=== PATIENT | female | born 1990 | race African-American/Black ===

== ENCOUNTER 2021-10-05 11:30 | Day surgery (SDC) | payer MEDICAID, OTHER ==
[2021-10-05] MEDS ORDERED: Depo-Medrol 40 MG/ML IM ONE (11:31)
[2021-10-05] MEDS ORDERED: Sodium Chloride 0.9% 10 ML FLUSH Syringe IJ ONE (11:31)
[2021-10-05] MEDS ORDERED: Lactated Ringers 1,000 ML IV ONE (13:35)
[2021-10-05] MEDS ORDERED: DIPRIVAN 200 MG/20 ML IV ONE (14:09)
--- NOTE | 2021-10-05 16:08 | XRAY ---
Indication: Left L3-L5 transforaminal VENESSA. Intraoperative fluoroscopy provided for 25 seconds. 4 digital spot image submitted for interpretation demonstrates posterior needle tips projecting over the expected left L3 and L4 nerve roots. Small amount of contrast injected for needle tip placement. Correlate with intraoperative findings/report.
--- NOTE | 2021-10-05 16:21 | XRAY ---
25 seconds fluoroscopy time in surgery for left L3-L5 transforaminal VENESSA.
== END 2021-10-05 14:36 | disposition home or self-care (01) ==
LOC: SDC-PAIN 11:30
PROVIDERS: ATTEND Psychiatry & Neurology Pain Medicine
DX: M54.16 Radiculopathy, lumbar region (principal); Z79.899 Other long term (current) drug therapy
CPT/HCPCS: 64483; 64484; 72100; 77003; 82947; 84703; J1030; J2704; Q9966

== ENCOUNTER 2021-11-02 13:53 | Day surgery (SDC) | payer OTHER ==
[2021-11-02] MEDS ORDERED: BUPIVACAINE 0.5% VIAL IJ ONE (13:54)
[2021-11-02] MEDS ORDERED: Depo-Medrol 40 MG/ML IM ONE (13:54)
[2021-11-02] MEDS ORDERED: Lactated Ringers 1,000 ML IV ONE (16:01)
[2021-11-02] MEDS ORDERED: DIPRIVAN 200 MG/20 ML IV ONE (16:48)
[2021-11-02] MEDS ORDERED: TORAdol 30 mg Injection ONE (17:10)
--- NOTE | 2021-11-02 19:27 | XRAY ---
Indication: Left greater trochanter bursa injection. Intraoperative fluoroscopy provided for 16 seconds. Single digital spot image submitted for interpretation demonstrates needle tip lateral to the left femur greater trochanter. Small amount of contrast injected for needle tip placement. Correlate with intraoperative findings/report.
--- NOTE | 2021-11-03 09:22 | XRAY ---
16 seconds fluoroscopy time in surgery for injection of the greater trochanter of the left hip.
== END 2021-11-02 17:15 | disposition home or self-care (01) ==
LOC: SDC-PAIN 13:53
PROVIDERS: ATTEND Psychiatry & Neurology Pain Medicine
DX: M16.12 Unilateral primary osteoarthritis, left hip (principal); Z79.899 Other long term (current) drug therapy
CPT/HCPCS: 20610; 73501; 77002; 84703; J1030; J1885; J2704; Q9966

== ENCOUNTER 2021-12-28 13:38 | Day surgery (SDC) | payer OTHER ==
[2021-12-28] MEDS ORDERED: BUPIVACAINE 0.5% VIAL IJ ONE (13:39)
[2021-12-28] MEDS ORDERED: Depo-Medrol 40 MG/ML IM ONE (13:39)
[2021-12-28] MEDS ORDERED: Lactated Ringers 1,000 ML IV ONE (15:01)
[2021-12-28] MEDS ORDERED: DIPRIVAN 200 MG/20 ML IV ONE (15:08)
--- NOTE | 2021-12-28 16:25 | XRAY ---
Indication: Left SI joint injection. Intraoperative fluoroscopy provided for 10 seconds. 2 digital spot images submitted for interpretation demonstrates posterior needle tip projecting over the inferior left SI joint. Correlate with intraoperative findings/report.
--- NOTE | 2021-12-28 17:05 | XRAY ---
10 seconds of fluoroscopy was used in surgery for a left SI injection.
== END 2021-12-28 15:32 | disposition home or self-care (01) ==
LOC: SDC-PAIN 13:38
PROVIDERS: ATTEND Psychiatry & Neurology Pain Medicine
DX: M46.1 Sacroiliitis, not elsewhere classified (principal); Z79.899 Other long term (current) drug therapy
CPT/HCPCS: 27096; 72020; 77002; 84703; G0260; J1030; J2704

== ENCOUNTER 2022-04-05 13:43 | Day surgery (SDC) | payer OTHER ==
[2022-04-05] MEDS ORDERED: Depo-Medrol 40 MG/ML IM ONE (13:44)
[2022-04-05] MEDS ORDERED: Marcaine Mpf 0.5% Vial 30 Ml IJ ONE (13:44)
[2022-04-05] MEDS ORDERED: Lactated Ringers 1,000 ML IV ONE (15:42)
[2022-04-05] MEDS ORDERED: DIPRIVAN 200 MG/20 ML IV ONE (16:08)
--- NOTE | 2022-04-05 21:56 | XRAY ---
Indication: Left SI joint and left hip injection. Intraoperative fluoroscopy provided for 25 seconds. 4 digital spot image submitted for interpretation demonstrates posterior needle tip projecting over the inferior left SI joint. Second needle tip projects lateral to the left femur neck with small amount of contrast injected for needle tip placement. Correlate with intraoperative findings/report.
--- NOTE | 2022-04-05 22:11 | XRAY ---
25 seconds of fluoroscopy was used in surgery for a left sacroiliac joint and left intra-articular hip injections.
== END 2022-04-05 16:35 | disposition home or self-care (01) ==
LOC: SDC-PAIN 13:43
PROVIDERS: ATTEND Psychiatry & Neurology Pain Medicine
DX: M46.1 Sacroiliitis, not elsewhere classified (principal); M16.12 Unilateral primary osteoarthritis, left hip; Z79.899 Other long term (current) drug therapy
CPT/HCPCS: 20610; 27096; 73502; 77002; 81025; G0260; J1030; J2704; Q9966

== ENCOUNTER 2022-06-07 14:46 | Day surgery (SDC) | payer OTHER ==
[2022-06-07] MEDS ORDERED: Depo-Medrol 40 MG/ML IM ONE (14:47)
[2022-06-07] MEDS ORDERED: Sodium Chloride 0.9(Preservative Free) 10 ML IJ ONE (14:47)
[2022-06-07] MEDS ORDERED: XYLOCAINE-MPF 1% 5ML SDV IJ ONE (14:47)
[2022-06-07] MEDS ORDERED: DIPRIVAN 200 MG/20 ML IV ONE ×2 (16:21→16:30)
[2022-06-07] MEDS ORDERED: MORPHINE SULFATE 2 MG INJ ONE (16:40)
[2022-06-07] MEDS ORDERED: Lactated Ringers 1,000 ML IV ONE (17:41)
--- NOTE | 2022-06-07 19:45 | XRAY ---
Indication: Left L4-S1 transforaminal VENESSA. Intraoperative fluoroscopy provided for 49 seconds. 4digital spot images submitted for interpretation demonstrates posterior needle tips projecting over the expected left L4 and L5 nerve roots. Small amount of contrast injected for needle tip placement. Correlate with intraoperative findings/report.
--- NOTE | 2022-06-08 10:58 | XRAY ---
49 seconds of fluoroscopy was used in surgery for a left L4-S1 transforaminal VENESSA.
== END 2022-06-07 16:55 | disposition home or self-care (01) ==
LOC: SDC-PAIN 14:46
PROVIDERS: ATTEND Psychiatry & Neurology Pain Medicine
DX: M54.16 Radiculopathy, lumbar region (principal); Z79.899 Other long term (current) drug therapy
CPT/HCPCS: 64483; 64484; 72100; 77003; 81025; J1030; J2270; J2704; Q9966

== ENCOUNTER 2022-06-21 14:46 | Day surgery (SDC) | payer OTHER ==
[2022-06-21] MEDS ORDERED: Depo-Medrol 40 MG/ML IM ONE (14:47)
[2022-06-21] MEDS ORDERED: Marcaine Mpf 0.5% Vial 30 Ml IJ ONE (14:47)
[2022-06-21] MEDS ORDERED: Lactated Ringers 1,000 ML IV ONE ×2 (16:46→17:01)
[2022-06-21] MEDS ORDERED: DIPRIVAN 200 MG/20 ML IV ONE ×2 (16:59→17:08)
[2022-06-21] MEDS ORDERED: Hydromorphone 1 mg/ml Injection ONE (17:27)
--- NOTE | 2022-06-21 19:02 | XRAY ---
Indication: Left SI joint and left hip injection. Intraoperative fluoroscopy provided for 47 seconds. 3 digital spot images obtained prone submitted for interpretation demonstrates posterior needle tip projecting over the left SI joint. Second needle tip lateral to the left femur neck with small amount of contrast injected for needle tip placement. Correlate with intraoperative findings/report.
--- NOTE | 2022-06-22 08:55 | XRAY ---
47 seconds fluoroscopy time in surgery for injections of the left SI joint and left hip.
== END 2022-06-21 17:36 | disposition home or self-care (01) ==
LOC: SDC-PAIN 14:46
PROVIDERS: ATTEND Psychiatry & Neurology Pain Medicine
DX: M46.1 Sacroiliitis, not elsewhere classified (principal); M16.12 Unilateral primary osteoarthritis, left hip; Z79.899 Other long term (current) drug therapy
CPT/HCPCS: 01992; 20610; 27096; 73501; 77002; 81025; G0260; J1030; J1170; J2704; Q9966

== ENCOUNTER 2022-12-27 11:20 | Day surgery (SDC) | payer OTHER ==
[2022-12-27] MEDS ORDERED: BUPIVACAINE 0.5% VIAL IJ ONE (11:21)
[2022-12-27] MEDS ORDERED: Depo-Medrol 40 MG/ML IM ONE (11:21)
[2022-12-27 11:51] LABS: HCG URINE TEST NEGATIVE (NEGATIVE)
[2022-12-27] MEDS ORDERED: DIPRIVAN 200 MG/20 ML IV ONE ×2 (12:44→12:50)
[2022-12-27] MEDS ORDERED: Lactated Ringers 1,000 ML IV ONE (14:16)
--- NOTE | 2022-12-27 16:33 | XRAY ---
Indication: Left SI joint and left hip injection Intraoperative fluoroscopy provided for 30 seconds. 3 digital spot image submitted for interpretation demonstrates posterior needle tip projecting over the left SI joint. Second needle tip lateral to the left femur neck with small amount of contrast injected for needle tip placement. Correlate with intraoperative findings/report.
--- NOTE | 2022-12-27 16:37 | XRAY ---
30 seconds of fluoroscopy was used in surgery for a left sacroiliac joint and left intra-articular hip injection.
== END 2022-12-27 13:15 | disposition home or self-care (01) ==
LOC: SDC-PAIN 11:20
PROVIDERS: ATTEND Psychiatry & Neurology Pain Medicine
DX: M46.1 Sacroiliitis, not elsewhere classified (principal); M16.12 Unilateral primary osteoarthritis, left hip; Z79.899 Other long term (current) drug therapy
CPT/HCPCS: 01992; 20610; 27096; 73502; 77002; 81025; G0260; 36415; J1030; J2704; Q9966

== ENCOUNTER 2023-03-29 11:41 | Day surgery (SDC) | payer OTHER ==
[2023-03-29] MEDS ORDERED: LIDOCAINE HCL 2% 100 MG/5 ML IJ ONE (11:42)
[2023-03-29 11:57] LABS: HCG URINE TEST NEGATIVE (NEGATIVE)
[2023-03-29] MEDS ORDERED: DIPRIVAN 200 MG/20 ML IV ONE ×2 (15:31→15:35)
[2023-03-29] MEDS ORDERED: Lactated Ringers 1,000 ML IV ONE (15:38)
--- NOTE | 2023-03-29 16:40 | XRAY ---
Indication: Bilateral L4-S1 MBB. Intraoperative fluoroscopy provided for 22 seconds. Single digital spot image submitted for interpretation demonstrates posterior needle tips projecting over the expected left and right L4-S1 nerve roots. Correlate with intraoperative findings/report.
--- NOTE | 2023-03-29 17:03 | XRAY ---
22 seconds of fluoroscopy was used in surgery for a bilateral L4-S1 MBB.
== END 2023-03-29 15:57 | disposition home or self-care (01) ==
LOC: SDC-PAIN 11:41
PROVIDERS: ATTEND Psychiatry & Neurology Pain Medicine
DX: M47.816 Spondylosis without myelopathy or radiculopathy, lumbar region (principal); Z79.899 Other long term (current) drug therapy
CPT/HCPCS: 64493; 64494; 72020; 77002; 81025; J2704

== ENCOUNTER 2023-07-11 10:42 | Day surgery (SDC) | payer OTHER ==
[2023-07-11] MEDS ORDERED: BUPIVACAINE 0.5% VIAL IJ ONE (10:43)
[2023-07-11] MEDS ORDERED: Depo-Medrol 40 MG/ML IM ONE (10:43)
[2023-07-11 10:52] LABS: HCG URINE TEST NEGATIVE (NEGATIVE)
[2023-07-11] MEDS ORDERED: DIPRIVAN 200 MG/20 ML IV ONE (16:42)
--- NOTE | 2023-07-11 18:05 | XRAY ---
Indication: Bilateral L4-S1 MBB. Intraoperative fluoroscopy provided for 20 seconds. Single digital spot image submitted for interpretation demonstrates posterior needle tips projecting over the expected left and right L4-S1 nerve roots. Correlate with intraoperative findings/report.
--- NOTE | 2023-07-11 18:08 | XRAY ---
20 seconds of fluoroscopy was used in surgery for a bilateral L4-S1 MBB.
[2023-07-11] MEDS ORDERED: Lactated Ringers 1,000 ML IV ONE (19:05)
== END 2023-07-11 17:09 | disposition home or self-care (01) ==
LOC: SDC-PAIN 10:42
PROVIDERS: ATTEND Psychiatry & Neurology Pain Medicine
DX: M47.816 Spondylosis without myelopathy or radiculopathy, lumbar region (principal); Z79.899 Other long term (current) drug therapy
CPT/HCPCS: 64493; 64494; 72020; 77002; 81025; J1030; J2704

== ENCOUNTER 2023-10-17 14:48 | Day surgery (SDC) | payer OTHER ==
[2023-10-17 15:04] LABS: HCG URINE TEST NEGATIVE (NEGATIVE)
[2023-10-17] MEDS ORDERED: Lactated Ringers 1,000 ML IV ONE (15:53)
--- NOTE | 2023-10-17 18:59 | XRAY ---
Indication: Left L4-S1 RFA. Intraoperative fluoroscopy provided for 20 seconds. 3 digital spot images submitted for interpretation demonstrates posterior needle tips projecting over the expected left L4-S1 nerve roots. Correlate with intraoperative findings/report.
--- NOTE | 2023-10-18 10:54 | XRAY ---
20 seconds of fluoroscopy was used in surgery for a left L4-S1 RFA.
== END 2023-10-17 16:55 | disposition home or self-care (01) ==
LOC: SDC-PAIN 14:48
PROVIDERS: ATTEND Psychiatry & Neurology Pain Medicine
DX: M47.816 Spondylosis without myelopathy or radiculopathy, lumbar region (principal); R73.03 Prediabetes
CPT/HCPCS: 64635; 64636; 72100; 77002; 81025; 82947

== ENCOUNTER 2023-10-24 12:08 | Day surgery (SDC) | payer OTHER ==
[2023-10-24] MEDS ORDERED: XYLOCAINE-MPF 1% 5ML SDV IJ ONE (12:09)
[2023-10-24] MEDS ORDERED: Depo-Medrol 40 MG/ML IM ONE (12:09)
[2023-10-24] MEDS ORDERED: BUPIVACAINE 0.5% VIAL IJ ONE (12:09)
[2023-10-24 12:18] LABS: HCG URINE TEST NEGATIVE (NEGATIVE)
[2023-10-24] MEDS ORDERED: Lactated Ringers 1,000 ML IV ONE (17:04)
--- NOTE | 2023-10-24 20:11 | XRAY ---
Indication: Right L4-S1 RFA. Intraoperative fluoroscopy provided for 26 seconds. 3 digital spot image submitted for interpretation demonstrates posterior needle tips projecting over the expected right L4-S1 nerve roots. Correlate with intraoperative findings/report.
--- NOTE | 2023-10-25 12:03 | XRAY ---
26 seconds of fluoroscopy was used in surgery for a right L4-S1 RFA.
== END 2023-10-24 18:50 | disposition home or self-care (01) ==
LOC: SDC-PAIN 12:08
PROVIDERS: ATTEND Psychiatry & Neurology Pain Medicine
DX: M47.816 Spondylosis without myelopathy or radiculopathy, lumbar region (principal)
CPT/HCPCS: 64635; 64636; 72100; 77002; 81025; J1030

== ENCOUNTER 2023-11-14 11:54 | Day surgery (SDC) | payer OTHER ==
[2023-11-14] MEDS ORDERED: LIDOCAINE HCL 1% 50 MG/5 ML VL PF IJ ONE (11:55)
[2023-11-14] MEDS ORDERED: Decadron 4 MG INJ IV ONE (11:55)
[2023-11-14] MEDS ORDERED: Sodium Chloride 0.9(Preservative Free) 10 ML IJ ONE (11:55)
[2023-11-14 12:07] LABS: HCG URINE TEST NEGATIVE (NEGATIVE)
[2023-11-14] MEDS ORDERED: Lactated Ringers 1,000 ML IV ONE (18:17)
--- NOTE | 2023-11-14 20:37 | XRAY ---
Indication: Cervical VENESSA. Intraoperative fluoroscopy provided for 39 seconds. 4 digital spot image submitted for interpretation demonstrates posterior needle tip projecting posterior to cervical thoracic junction. Small amount of contrast injected for needle tip placement. Correlate with intraoperative findings/report.
--- NOTE | 2023-11-15 09:19 | XRAY ---
39 seconds of fluoroscopy was used in surgery for a cervical VENESSA.
== END 2023-11-14 19:30 | disposition home or self-care (01) ==
LOC: SDC-PAIN 11:54
PROVIDERS: ATTEND Psychiatry & Neurology Pain Medicine
DX: M54.12 Radiculopathy, cervical region (principal); R73.03 Prediabetes
CPT/HCPCS: 62321; 72040; 77003; 81025; 82947; J1100; J2001; Q9966

== ENCOUNTER 2024-02-20 12:42 | Day surgery (SDC) | payer OTHER ==
[2024-02-20] MEDS ORDERED: BUPIVACAINE 0.5% VIAL IJ ONE (12:43)
[2024-02-20] MEDS ORDERED: Depo-Medrol 40 MG/ML IM ONE (12:43)
[2024-02-20] MEDS ORDERED: Decadron 4 MG INJ IV ONE (12:43)
[2024-02-20] MEDS ORDERED: XYLOCAINE-MPF 1% 5ML SDV IJ ONE (12:43)
[2024-02-20 12:54] LABS: HCG URINE TEST NEGATIVE (NEGATIVE)
[2024-02-20] MEDS ORDERED: Lactated Ringers 1,000 ML IV ONE (15:12)
[2024-02-20] MEDS ORDERED: DIPRIVAN 200 MG/20 ML IV ONE ×2 (16:57→17:03)
--- NOTE | 2024-02-20 19:15 | XRAY ---
Indication: Left SI joint and left piriformis injection. Intraoperative fluoroscopy provided for 18 seconds. 2 digital spot images submitted for interpretation demonstrates posterior needle tips projecting over the left SI joint and left piriformis. Small amount of contrast injected for needle tip placement. Correlate with intraoperative findings/report.
--- NOTE | 2024-02-21 09:28 | XRAY ---
18 seconds of fluoroscopy was used in surgery for a left sacroiliac joint and piriformis injection.
== END 2024-02-20 17:27 | disposition home or self-care (01) ==
LOC: SDC-PAIN 12:42
PROVIDERS: ATTEND Psychiatry & Neurology Pain Medicine
DX: M46.1 Sacroiliitis, not elsewhere classified (principal); E11.9 Type 2 diabetes mellitus without complications
CPT/HCPCS: 01992; 20552; 27096; 72170; 77002; 81025; 82947; G0260; J1010; J1100; J2704; Q9966

== ENCOUNTER 2024-04-23 13:49 | Day surgery (SDC) | payer OTHER ==
[2024-04-23] MEDS ORDERED: Depo-Medrol 40 MG/ML IM ONE (13:50)
[2024-04-23] MEDS ORDERED: BUPIVACAINE 0.5% VIAL IJ ONE (13:50)
[2024-04-23 14:03] LABS: HCG URINE TEST NEGATIVE (NEGATIVE)
[2024-04-23] MEDS ORDERED: DIPRIVAN 200 MG/20 ML IV ONE (17:03)
[2024-04-23] MEDS ORDERED: Lactated Ringers 1,000 ML IV ONE (17:24)
[2024-04-23] MEDS ORDERED: Hydromorphone 1 mg/ml Injection ONE (17:31)
--- NOTE | 2024-04-23 19:11 | XRAY ---
Indication: Left hip and greater trochanter bursa injection. Intraoperative fluoroscopy provided for 25 seconds. 2 digital spot image submitted for interpretation demonstrates needle tips projecting lateral to left femur neck and greater trochanter. Small amount of contrast injected for both needle tip placement. Correlate with intraoperative findings/report.
--- NOTE | 2024-04-24 10:03 | XRAY ---
25 seconds of fluoroscopy was used in surgery for a left intra-articular hip and greater trochanteric bursa injection.
== END 2024-04-23 17:50 | disposition home or self-care (01) ==
LOC: SDC-PAIN 13:49
PROVIDERS: ATTEND Psychiatry & Neurology Pain Medicine
DX: M16.12 Unilateral primary osteoarthritis, left hip (principal); R73.03 Prediabetes
CPT/HCPCS: 20610; 73502; 77002; 81025; 82947; J1170; J2704; Q9966

== ENCOUNTER 2024-08-06 08:12 | Day surgery (SDC) | payer OTHER, SELFPAY ==
[2024-08-06] MEDS ORDERED: Depo-Medrol 40 MG/ML IM ONE (08:13)
[2024-08-06] MEDS ORDERED: BUPIVACAINE 0.5% VIAL IJ ONE (08:13)
[2024-08-06 16:23] LABS: HCG URINE TEST NEGATIVE (NEGATIVE)
[2024-08-06] MEDS ORDERED: DIPRIVAN 200 MG/20 ML IV ONE ×2 (16:48→16:55)
--- NOTE | 2024-08-06 19:04 | XRAY ---
Indication: Left SI joint and left greater trochanter bursa injection. Intraoperative fluoroscopy provided for 16 seconds. 2 digital spot image submitted for interpretation demonstrates needle tips projecting over left SI joint and lateral to left greater trochanter. Small amount of contrast injected for all needle tip placement. Correlate with intraoperative findings/report.
--- NOTE | 2024-08-07 09:00 | XRAY ---
16 seconds of fluoroscopy used in surgery for a left sacroiliac joint and left greater trochanteric bursa injections.
== END 2024-08-06 17:15 | disposition home or self-care (01) ==
LOC: SDC-PAIN 08:12
PROVIDERS: ATTEND Psychiatry & Neurology Pain Medicine
DX: M46.1 Sacroiliitis, not elsewhere classified (principal); E11.9 Type 2 diabetes mellitus without complications; M16.12 Unilateral primary osteoarthritis, left hip
CPT/HCPCS: 20610; 27096; 73501; 77002; 81025; 82947; J2704; Q9966

== ENCOUNTER 2024-12-10 12:43 | Day surgery (SDC) | payer OTHER ==
[2024-12-10] MEDS ORDERED: LIDOCAINE HCL 1% AMPUL 5 ML IJ ONE (12:44)
[2024-12-10] MEDS ORDERED: Depo-Medrol 40 MG/ML IM ONE (12:44)
[2024-12-10] MEDS ORDERED: dexAMETHasone sodium phosphate IJ ONE (12:44)
[2024-12-10] MEDS ORDERED: BUPIVACAINE 0.5% VIAL IJ ONE (12:44)
[2024-12-10 12:56] LABS: HCG URINE TEST NEGATIVE (NEGATIVE)
[2024-12-10] MEDS ORDERED: propofoL IV ONE ×2 (16:55→17:05)
--- NOTE | 2024-12-10 19:19 | XRAY ---
Indication: Left hip and left piriformis injection. Intraoperative fluoroscopy provided for 38 seconds. 2 digital spot image obtained prone submitted for interpretation demonstrates needle tip lateral to left femur neck. Second needle tip projects over left piriformis. Small amount of contrast injected for both needle tip placement. Correlate with intraoperative findings/report.
--- NOTE | 2024-12-10 20:32 | XRAY ---
38 seconds of fluoroscopy were used in surgery for a left piriformis muscle injection and a left intra-articular hip injection.
== END 2024-12-10 17:40 | disposition home or self-care (01) ==
LOC: SDC-PAIN 12:43
PROVIDERS: ATTEND Psychiatry & Neurology Pain Medicine
DX: M16.12 Unilateral primary osteoarthritis, left hip (principal); M79.18 Myalgia, other site; E11.9 Type 2 diabetes mellitus without complications
CPT/HCPCS: 20553; 20610; 73501; 77002; 81025; 82947; J1100; J2704; Q9966